=== PATIENT | female | born 1960 | race Two or more races ===

== ENCOUNTER 2017-06-27 07:07 | Emergency (ER) | payer BC ==
[~2017-06-27] VITALS: Ht 157.5 cm; Wt 61.2 kg
[2017-06-27 07:21] VITALS: BP 124/75
== END 2017-06-27 07:59 | disposition home or self-care (01) ==
LOC: ER 07:08
DX: H11.32 Conjunctival hemorrhage, left eye (principal)
CPT/HCPCS: 99281; A4606; Z7502; Z7610